=== PATIENT | female | born 1960 ===

== ENCOUNTER 2020-12-26 12:37 | Emergency (ER) | payer OTHER, SELFPAY ==
[2020-12-26 12:49] VITALS: BP 223/94; PULSE 65; RESP 18; TEMP 36.4; O2SAT 100; BMI 29.2
[2020-12-26 12:54] VITALS: BP 223/94; PULSE 75; TEMP 36.4; O2SAT 98
--- NOTE | 2020-12-26 12:54 | DI.RAD.S_ITS ---
PROCEDURE: XR SHOULDER RT MIN 2V INDICATIONS: shoulder pain post fall TECHNIQUE: 3 views of the shoulder were acquired. COMPARISON: None. FINDINGS: Bones: Comminuted, displaced fracture of the humeral head and neck with pseudosubluxation. No suspicious bony lesions. Visualized ribs appear intact. Soft tissues: No suspicious soft tissue calcifications. IMPRESSION: Comminuted, displacement the humeral head and neck Dictated by: Darren Jacobs M.D. on 12/26/2020 at 12:27 Approved by: Darren Jacobs M.D. on 12/26/2020 at 12:28
--- NOTE | 2020-12-26 12:54 | DI.RAD.S_ITS ---
PROCEDURE: XR HUMERUS RT 2V INDICATIONS: shoulder pain post fall TECHNIQUE: 2 views of the humerus were acquired. COMPARISON: None. FINDINGS: Bones: Comminuted, displaced fracture of the humeral head and neck. No distal humeral fractures. No suspicious bony lesions. Soft tissues: No suspicious soft tissue calcifications. IMPRESSION: Comminuted, displaced fracture of the humeral head and neck. Dictated by: Darren Jacobs M.D. on 12/26/2020 at 12:28 Approved by: Darren Jacobs M.D. on 12/26/2020 at 12:29
--- NOTE | 2020-12-26 13:19 | ED.UPPEXIN ---
HPI - Extremity Injury (Upper) General Chief Complaint: Extremity Injury, Upper Stated Complaint: Fell and hurt right arm Time Seen by Provider: 12/26/20 12:53 Source: patient Mode of arrival: Ambulatory Limitations: no limitations History of Present Illness HPI narrative: 60-year-old woman with a history of hypothyroidism and hypertension presents after stumbling and landing on an outstretched right arm with pain in the upper portion of the arm and shoulder. There is no loss of consciousness. She is able to move her arm and is neurovascularly intact. The fall was approximately 1 hour prior to arrival in the emergency department and she describes no other points of injury or concern. Related Data Previous Rx's Medication Instructions Recorded oxycodone-acetaminophen 1 tab PO Q6H PRN 10 Days #20 tab 12/26/20 polyethylene glycol 3350 17 g PO DAILY #30 ea 12/26/20 Allergies Allergy/AdvReac Type Severity Reaction Status Date / Time No Known Drug Allergies Allergy Verified 12/26/20 13:46 Review of Systems Review of Systems Narrative: Pertinent positive and negative findings as per HPI Remainder of review of systems is otherwise unremarkable for Constitutional: Fevers, chills, weakness ENT: No sore throat, neck pain, ear pain CV: Chest pain, palpitations, Respiratory: Cough, wheeze, dyspnea GI: Nausea, vomiting, diarrhea, : Dysuria, hematuria, Patient History Medical History Hypertension Hypothyroid Social History Smoking Status: Current every day smoker Smoking Status: Current every day smoker tobacco type: cigarettes alcohol intake frequency: 0-2 drinks per day Substance Use Type: does not use Exam Narrative Exam Narrative: General: Alert appropriate in no acute distress Respiratory: Able to speak in full sentences, no obvious respiratory distress Skin: No obvious rashes, warm and dry Neurologic: Grossly intact no obvious asymmetries or abnormalities Psych: appropriate insight and affect, cooperative Extremity: Right shoulder is tender with some edema but no gross deformity, hematoma or abrasion. Elbow is nontender with full range of motion. Wrist is normal. Neurovascularly intact. Initial Vital Signs Initial Vital Signs: Vital Signs Temperature 97.5 F L 12/26/20 12:49 Pulse Rate 65 12/26/20 12:49 Respiratory Rate 18 06/19/21 12:49 Blood Pressure 223/94 H 12/26/20 12:49 Pulse Oximetry 100 12/26/20 12:49 Procedures Orthopedic Splinting/Casting Right proximal humerus: Side: right Upper Extremity Injury Location: upper arm Upper Extremity Immobilizer: sling/shoulder immobilizer Post splinting neuro exam: intact Post splinting vascular exam: intact Placed by: Nursing Course Orders Ordered: ED Orders 12/26/20 12:54 XR humerus RT 2V Stat XR shoulder RT min 2V Stat 12/26/20 13:36 CT UE RT wo con Stat Discontinued Medications Ibuprofen (Ibuprofen 400 Mg Tablet) 400 mg PO NOW ONE Stop: 12/26/20 13:29 Last Admin: 12/26/20 13:45 Dose: 400 mg Documented by: JUAN Oxycodone/Acetaminophen (Oxycodone/Acetaminophen 5/325 Tablet) 1 tab PO NOW ONE Stop: 12/26/20 13:29 Last Admin: 12/26/20 13:46 Dose: 1 tab Documented by: JUAN Vital Signs Vital signs: Vital Signs - 8 hr 12/26/20 12:49 12/26/20 12:54 12/26/20 13:30 Temperature 97.5 F L 97.5 F L Pulse Rate 65 75 64 Pulse Rate [Right] Respiratory Rate 18 Blood Pressure 223/94 H 223/94 H 186/73 H Pulse Oximetry 100 98 100 12/26/20 13:59 12/26/20 15:31 Temperature Pulse Rate 69 Pulse Rate [Right] 78 Respiratory Rate Blood Pressure 179/77 H Pulse Oximetry 95 MDM - Extremity Injury (Upper) Medical Records Attestation: I reviewed the patient's medical records. Lab Data Attestation: I reviewed the patient's lab results. Imaging Data X-ray shoulder: Radiologist's Impression: General: Alert appropriate in no acute distress Respiratory: Able to speak in full sentences, no obvious respiratory distress Skin: No obvious rashes, warm and dry Neurologic: Grossly intact no obvious asymmetries or abnormalities Psych: appropriate insight and affect, cooperative X-ray humerus: Radiologist's Impression: FINDINGS: Bones: Comminuted, displaced fracture of the humeral head and neck with pseudosubluxation. No suspicious bony lesions. Visualized ribs appear intact. Soft tissues: No suspicious soft tissue calcifications. IMPRESSION: Comminuted, displacement the humeral head and neck Dictated by: Darren Jacobs M.D. on 12/26/2020 at 12:27 CT scan right proximal humerus: Radiologist's Impression: FINDINGS: Image quality: Excellent Bones: Comminuted fracture of humeral head and neck. No intra-articular extension noted. No other fractures or dislocations. Soft tissues: Unremarkable IMPRESSION: Comminuted fracture of the humeral head and neck Dictated by: Darren Jacobs M.D. on 12/26/2020 at 14:00 [facility] Narrative Medical decision making narrative: 60-year-old woman with mechanical fall resulting in a proximal humeral head and neck fracture right side that is both comminuted and displaced. Care is reviewed with Dr. Florez, orthopedic surgeon. She did request CT scan prior to discharge. Placement was placed in a sling for comfort with an Ed wrap swath applied as well. Ibuprofen and Percocet were helpful for pain control. She will be discharged home with instructions to call [facility] on Monday to schedule an appointment for definitive care and treatment of her right humeral fracture. She is aware that she may need surgical intervention for this fracture. Discharge Plan Departure Patient Disposition: Home Clinical Impression: Fracture, humerus closed Qualifiers: Encounter type: initial encounter Humerus Location: proximal Fracture morphology: unspecified fracture morphology Laterality: right Qualified Code(s): S42.201A - Unspecified fracture of upper end of right humerus, initial encounter for closed fracture Instructions: DI for Humeral Fracture Prescriptions: New oxycodone-acetaminophen 5-325 mg tablet 1 tab PO Q6H PRN (Reason: pain) 10 Days Qty: 20 RF: 0 polyethylene glycol 3350 17 gram powder in packet 17 g PO DAILY Qty: 30 RF: 0 Referrals: Tiki Florez MD [Physician] - Stand Alone Forms: Work Release Note
[2020-12-26 13:30] VITALS: BP 186/73; PULSE 64; O2SAT 100
--- NOTE | 2020-12-26 13:36 | DI.CT.S_ITS ---
PROCEDURE: CT UE RT WO CON INDICATIONS: prox humerus fracture - per op imaging TECHNIQUE: Noncontrast 1-1.5 mm thick sections acquired from the acromioclavicular joint to the inferior scapula, with coronal and sagittal reformatting. COMPARISON: [facility], CR, XR HUMERUS RT 2V, 12/26/2020, 12:54. FINDINGS: Image quality: Excellent Bones: Comminuted fracture of humeral head and neck. No intra-articular extension noted. No other fractures or dislocations. Soft tissues: Unremarkable IMPRESSION: Comminuted fracture of the humeral head and neck Dictated by: Darren Jacobs M.D. on 12/26/2020 at 14:00 Approved by: Darren Jacobs M.D. on 12/26/2020 at 14:01
[2020-12-26] MEDS: IBUPROFEN 400 MG TABLET PO (13:45)
[2020-12-26] MEDS: OXYCODONE/ACETAMINOPHEN 5/325 TABLET 1 TAB PO (13:46)
[2020-12-26 13:59] VITALS: PULSE 78
[2020-12-26 15:31] VITALS: BP 179/77; PULSE 69; O2SAT 95
== END 2020-12-26 15:37 | disposition home or self-care (01) ==
PROVIDERS: Emergency Provider Emergency Medicine
DX: S42.201A Unspecified fracture of upper end of right humerus, initial encounter for closed fracture (principal); W19.XXXA Unspecified fall, initial encounter
CPT/HCPCS: 73030; 73060; 73200; 99284